=== PATIENT | male | born 1930 | race Caucasian/White ===

== ENCOUNTER → 2017-05-21 | Day surgery (SDC) | payer MEDICARE ==
[~2017-05-21] VITALS: Ht 172.7 cm; Wt 71.9 kg
[~2017-05-21] MED LIST: APIX2.5T PO; AVOD0.5C PO; CARV12.52 PO; CEPH-459 PO; CHLORHEXIDINE GLUCONATE 2 % 1 PACK (2 CLOTHS) TOPICAL PRN; COLC1CAP3 PO; CRAN450T5 PO; DETR4CAP PO; DO NOT ADM ANY ANTICOAGULANT DRUGS PRN; FINA5TAB2 PO; FURO40TA PO; INSULIN HUMAN REGULAR 1,000 UNITS/10 ML VIAL SQ PRN; LACTATED RINGER'S 1000 ML INJ 1,000 ML IV ONE; LACTATED RINGER'S 1000 ML IV PRN; LIDOCAINE 2%/EPINEPHrine 1:100,000 20ML MDV INFIL ONE; MEPERIDINE HCL 50 MG/ML VIAL ONE; METOPROLOL TARTRATE 25 MG TAB PO PRN; MIRA3350 PO; NAME10TA PO; ONDANSETRON HCL 4 MG/2 ML VIAL IV PUSH PRN; PERC5TAB12 PO; POTA-163 PO; POVIDONE IODINE 5% (ANTISEPSIS KIT) 4 APPLICATIONS EACH NARE PRN; PROPOFOL 200 MG/20 ML AMP IV ONE; SODIUM CHLORID 0.9% 500 ML IV PRN; SODIUM CHLORIDE 0.9% INJ 100 ML ONE; TOVI4TAB PO; ceFAZolin 1,000 MG/NS 100 ML IV SCH; ceFAZolin INJ 1,000 MG VIAL ONE; oxyCODONE/ACETAMINOPHEN 5 MG/325 MG TAB PO PRN
[2017-05-21 10:09] LABS: BASOPHIL % 0.5 % (0.0-2.0); EOSINOPHIL # 0.2 TH/MM3 (0-0.4); EOSINOPHIL % 3.9 % (0.0-4.0); HEMATOCRIT 41.3 % (39.0-51.0); HEMO FLAGS DIFF FINAL; LYMPH % 26.2 % (9.0-44.0); LYMPHOCYTE # 1.3 TH/MM3 (1.0-4.8); MEAN CELL VOLUME 96.5 FL (80.0-100.0); MEAN CORPUSCULAR HEMOGLOBIN 32.3 PG (27.0-34.0); MEAN CORPUSCULAR HGB CONC 33.5 % (32.0-36.0); MONO % 10.7 % (0.0-8.0); NEUT % 58.7 % (16.0-70.0); PLATELET COUNT 168 TH/MM3 (150-450); RED BLOOD COUNT 4.28 MIL/MM3 (4.50-5.90); RED CELL DISTRIBUTION WIDTH 13.8 % (11.6-17.2)
--- NOTE | 2017-05-21 12:05 | EKG ---
Date Performed: 05/21/2017 Time Performed: 09:51:25 PTAGE: 86 years EKG: ELECTRONIC VENTRICULAR PACEMAKER ABNORMAL RHYTHM ECG PREVIOUS TRACING : 02/29/2012 15.29 No significant change from previous tracing noted. DOCTOR: Jose Lal Interpretating Date/Time 05/21/2017 12:03:50
--- NOTE | 2017-05-21 13:36 | PD.OP ---
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 Operative procedure in detail: Patient was brought to the operating room suite and placed supine on the cystoscopy table. He was then administered I V sedation and repositioned in the dorsal lithotomy position. He was then prepped and draped in normal sterile fashion. After an appropriate timeout was undertaken I proceeded with cystoscopic evaluation utilizing the rigid cystoscope with the 20 [place] sheath and the 30 lens. The urethra was patent without stricture formation. The prostatic urethra was obstructing with apposition of the lateral lobes. Further passes of cystoscope within the urinary bladder revealed both right and left ureteral orifices to be in correct anatomic position effluxing clear yellow urine. The bladder itself was mild to moderately trabeculated. With the bladder filled with irrigation by the cystoscope I next proceeded with placing the suprapubic catheter as follows. The site was determined just superior to the symphysis pubis in the midline and the skin was infiltrated with 2% lidocaine solution. The proposed trajectory of the suprapubic tube tract was also anesthetized utilizing a total of 6 cc lidocaine solution. A #15 blade was utilized to make a transverse 1 cm midline incision. I was next handed a trocar for suprapubic catheter placement and passed a trocar into the anterior bladder wall. The tip of it could be seen cystoscopically protruding through the wall. Once the obturator was removed it became apparent that a 16 [place] Rivas would not fit through this particular suprapubic kit. I also tried a 14 [place] and a 12 [place] without success. I next utilized a Amplatz dilation set to provide access for suprapubic catheter placement and was able to place a 18 [place] 10 cc Rivas catheter through the Amplatz sheath. Once the Rivas was in place I cut away the sheath using suture scissors. The suprapubic catheter was secured in place utilizing a 0 nylon suture and was subsequently connected to gravity drainage. The patient tolerated the procedures without complications and was transferred to the PACU in satisfactory condition. Terrance Borges MD May 21, 2017 13:36
[2017-05-21 15:10] VITALS: PULSE 60; RESP 18; TEMP 97.6; O2SAT 96
[2017-05-21 15:47] VITALS: BP 130/81
--- NOTE | 2017-05-21 17:16 | PD.CONS ---
HPI Service [facility] Hospitalists Consult Requested By Primary Care Physician Alex Villeda M.D. 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 He had a suprapubic catheter placed today by Dr Borges for urine retention. He developed post op hypotension and I was asked to see him. When I arrived he is standing and dressed. He and family are eager for d/c. But is concerned with some mild drips of blood from his penis. Otherwise pt denies dizziness and no cp or sob. Review of Systems Other low bp Past Family Social History Past Medical History urine retention dementia bph gout htn afib hx pacemaker glaucoma Reported Medications Finasteride 5 Mg Tab 5 Mg PO DAILY Do not crush. Potassium Chloride ER (Potassium Chloride) 20 Meq Tab 20 Meq PO DAILY PRN Colchicine 0.6 Mg Cap 0.6 Mg PO DAILY PRN Detrol LA (Tolterodine Tartrate) 4 Mg Cap 4 Mg PO DAILY Cranberry (Cranberry Fruit Concentrate) 450 Mg Tablet 450 Mg PO DAILY Miralax Powder (Polyethylene Glycol 3350 Powder) 17 Gm Powd 17 Gm PO DAILY Mix and dissolve one measuring cap-ful (17 grams) in water or juice. Furosemide 40 Mg Tab 40 Mg PO DAILY Carvedilol 12.5 Mg Tab 6.25 Mg PO BID Eliquis (Apixaban) 2.5 Mg Tab 2.5 Mg PO BID Namenda (Memantine) 10 Mg Tab 10 Mg PO DAILY Allergies: Coded Allergies: bee venom protein (honey bee) (Unverified Allergy, Severe, THROAT SWELLS, 05/21/17) hornet venom (Unverified Allergy, Severe, THROAT SWELLS, 05/21/17) Family History nc Social History no etoh/tob Physical Exam Vital Signs nad ambulating currently pt conversing and able to tell alot of old stories no labored breathing not orthostatic heart reg lung cta abd spc noted ext no edema Vital Signs Date Time Temp Pulse Resp B/P (MAP) Pulse Ox O2 Delivery O2 Flow Rate FiO2 05/21/17 15:47 130/81 (97) 05/21/17 15:31 89/64 (72) 05/21/17 15:10 97.6 60 18 89/65 (73) 96 Room Air 05/21/17 14:06 97.4 62 18 146/87 (106) 98 Room Air 05/21/17 14:00 97.5 61 24 150/80 (103) 98 Room Air 05/21/17 13:45 68 20 158/80 (106) 96 Room Air 05/21/17 13:33 97.5 63 20 138/74 (95) 97 Room Air 05/21/17 09:53 97.9 62 18 142/84 (103) 97 Laboratory Laboratory Tests Test 05/21/17 09:40 White Blood Count 5.0 Red Blood Count 4.28 Hemoglobin 13.8 Hematocrit 41.3 Mean Corpuscular Volume 96.5 Mean Corpuscular Hemoglobin 32.3 Mean Corpuscular Hemoglobin Concent 33.5 Red Cell Distribution Width 13.8 Platelet Count 168 Mean Platelet Volume 8.3 Neutrophils (%) (Auto) 58.7 Lymphocytes (%) (Auto) 26.2 Monocytes (%) (Auto) 10.7 Eosinophils (%) (Auto) 3.9 Basophils (%) (Auto) 0.5 Neutrophils # (Auto) 3.0 Lymphocytes # (Auto) 1.3 Monocytes # (Auto) 0.5 Eosinophils # (Auto) 0.2 Basophils # (Auto) 0.0 CBC Comment DIFF FINAL Differential Comment Result Diagram: 05/21/17 0940 Assessment and Plan Problem List: (1) Hypotension ICD Codes: I95.9 - Hypotension, unspecified Plan: 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 He had a suprapubic catheter placed today by Dr Borges for urine retention. He developed post op hypotension and I was asked to see him. When I arrived he is standing and dressed. He and family are eager for d/c. But is concerned with some mild drips of blood from his penis. Otherwise pt denies dizziness and no cp or sob. He probably had a vasovagal type hypotension. Or even from the anesthesia No evidence of hemorrhaging at the moment I called Dr Borges and the amt of blood is nml and will continue for several days. He requested the eliquis be held for 5 days until the blood clears Pt and family understood the instruction Orthostatics were checked and negative he was discharged with f/u. (2) Urinary retention ICD Codes: R33.9 - Retention of urine, unspecified Status: Chronic (3) Afib ICD Codes: I48.91 - Unspecified atrial fibrillation Status: Chronic (4) Dementia ICD Codes: F03.90 - Unspecified dementia without behavioral disturbance Status: Chronic Jake Fedlman MD May 21, 2017 17:16
== END | disposition home or self-care (01) ==
LOC: HSDC 08:35
PROVIDERS: ATTEND Urology
DX: N40.1 Benign prostatic hyperplasia with lower urinary tract symptoms (principal); R33.8 Other retention of urine; R94.31 Abnormal electrocardiogram [ECG] [EKG]; I48.91 Unspecified atrial fibrillation
CPT/HCPCS: 00800; 51102; 85025; 93005; C1769; J0690; J2175; J3010; J7120